=== PATIENT | male | born 1980 | race Caucasian/White ===

== ENCOUNTER 2020-12-19 13:18 | Observation (INO) | payer BC ==
[~2020-12-19] VITALS: Ht 188 cm; Wt 72.6 kg
[2020-12-19 14:37] LABS: RED BLOOD COUNT 5.6 M/UL (4.20-5.50); WHITE BLOOD COUNT 9.2 K/UL (4.5-11.0)
[2020-12-19 15:06] LABS: BUN/CREATININE RATIO 11 (0-10)
[2020-12-20 04:18] LABS: HEMOGLOBIN 16.5 gm/dl (14.0-17.5); RED BLOOD COUNT 5.48 M/UL (4.20-5.50); WHITE BLOOD COUNT 9.6 K/UL (4.5-11.0)
[2020-12-20 04:40] LABS: BUN/CREATININE RATIO 14 (0-10)
[2020-12-20 12:58] LABS: HEMOGLOBIN 17.6 gm/dl (14.0-17.5); RED BLOOD COUNT 5.74 M/UL (4.20-5.50); WHITE BLOOD COUNT 9.1 K/UL (4.5-11.0)
[2020-12-21 02:20] LABS: HEMOGLOBIN 16.4 gm/dl (14.0-17.5); RED BLOOD COUNT 5.42 M/UL (4.20-5.50); WHITE BLOOD COUNT 8.9 K/UL (4.5-11.0)
[2020-12-21 02:40] LABS: BUN/CREATININE RATIO 12 (0-10)
[2020-12-21] MEDS ORDERED: ELIQUIS 5 MG TAB5 MG PO (13:08)
[2020-12-21] MEDS ORDERED: MULTAQ 400 MG400 MG PO ×2 (13:08→15:17)
== END 2020-12-21 18:08 | disposition home or self-care (01) ==
LOC: ER1 13:18 → CDU 16:30 → MED SURG 4 18:50 → PROG CARE 12-20 12:10
PROVIDERS: Emergency Medicine; Internal Medicine Interventional Cardiology; Physician Assistant; ADMIT Internal Medicine
DX: I48.91 Unspecified atrial fibrillation (principal); E80.6 Other disorders of bilirubin metabolism; F17.290 Nicotine dependence, other tobacco product, uncomplicated; G47.419 Narcolepsy without cataplexy; R94.31 Abnormal electrocardiogram [ECG] [EKG]; Z20.822 Contact with and (suspected) exposure to COVID-19; Z98.890 Other specified postprocedural states; Z82.49 Family history of ischemic heart disease and other diseases of the circulatory system
CPT/HCPCS: ECHO; 36415; 71045; 80053; 82550; 82553; 83735; 83874; 84439; 84443; 84484; 85025; 85027; 85379; 85610; 85730; 92960; 93005; 93306; 93312; 93320; 96374; 96375; 99285; G0378; J0461; J1644; J2250; J7030; U0002

== ENCOUNTER → 2021-08-07 | Outpatient (CLI) | payer BC ==
[~2021-08-07] MED LIST: ELIQUIS 5 MG TAB5 MG PO; MULTAQ 400 MG400 MG PO
== END ==
LOC: EXRD 08-05 14:30
DX: R22.9 Localized swelling, mass and lump, unspecified (principal)
CPT/HCPCS: 76536